=== PATIENT | male | born 2005 | race Hispanic/Latino ===

== ENCOUNTER 2025-01-25 21:12 | Emergency (ER) | payer SELFPAY ==
[~2025-01-25] VITALS: Ht 175.3 cm; Wt 76.7 kg
[2025-01-25 21:37] VITALS: PULSE 118; RESP 18; TEMP 98.9
[2025-01-25 23:40] VITALS: BP 131/94; PULSE 109; RESP 18; TEMP 98.9; O2SAT 98
== END 2025-01-25 23:40 | disposition home or self-care (01) ==
LOC: FSED 21:18
DX: R00.0 Tachycardia, unspecified (principal); F41.9 Anxiety disorder, unspecified; R94.31 Abnormal electrocardiogram [ECG] [EKG]
CPT/HCPCS: 80053; 84484; 85025; 85379; 93005; 99283